=== PATIENT | male | born 1995 | race Caucasian/White ===

== ENCOUNTER 2025-06-21 17:10 | Emergency (ER) | payer BC, OTHER ==
[2025-06-21] MEDS: fentaNYL 50 MCG/ML SDV IVPUSH ONE (17:40)
[2025-06-21] MEDS: Bacitracin Oint 1 GM U/D Packet TOP ONE (18:51)
== END 2025-06-21 18:40 | disposition home or self-care (01) ==
LOC: CC.ED 17:10
DX: S62.612A Displaced fracture of proximal phalanx of right middle finger, initial encounter for closed fracture (principal); W20.8XXA Other cause of strike by thrown, projected or falling object, initial encounter; Y99.0 Civilian activity done for income or pay
CPT/HCPCS: 12001; 73130; 73140; 96374; 99283; J2003; J3010